=== PATIENT | male | born 1960 | race Caucasian/White ===

== ENCOUNTER 2016-11-23 20:01 | Emergency (ER) | payer OTHER ==
[~2016-11-23] VITALS: Ht 172.7 cm; Wt 86.3 kg
[~2016-11-23 20:01] MED LIST: ASPI325T PO; ATOR10 PO; CARV3.125 PO; LISI2.5T55 PO
[2016-11-23 20:14] VITALS: BP 135/91; PULSE 94; RESP 17; TEMP 98.3; O2SAT 98
[2016-11-23] MEDS ORDERED: DOCU50CA5 (20:22)
[2016-11-23] MEDS ORDERED: TRAM50TA PO (20:22)
--- NOTE | 2016-11-23 20:45 | PD ---
HPI Chief Complaint: Complaint Time Seen by Provider: 20:31 Travel History International Travel<30 days: No Contact w/Intl Traveler<30days: No Traveled to known affect area: No History of Present Illness HPI 56yo M with PMH of CAD s/p CABG presents to the ED with c/o inability to urinate since 4:30pm today. Pt states he had robotic prostatectomy on 11/19/16 and follow up with his urologist today in the clinic. Pt had his reyes catheter removed at 1pm today and was able to urinate after that. However , pt has not been able to urinate since 4:30pm and has the urge to urinate. Denies any abdominal pain but feels pressure in his bladder. Denies any fever, n/v, chest pain, sob, focal weakness or numbness. PFSH Past Medical History Cancer: No Cardiovascular Problems: Yes (TRIPLE BYPASS) Coronary Artery Disease: Yes ([place]) Diminished Hearing: No Endocrine: No Gastrointestinal Disorders: No Genitourinary: No Immune Disorder: No Implanted Vascular Access Dvce: No Musculoskeletal: No Neurologic: No Reproductive: No Respiratory: No Past Surgical History Abdominal Surgery: No AICD: No Arteriovenous Shunt: No Cardiac Surgery: Yes (3 VESSEL CABG) Ear Surgery: No Endocrine Surgery: No Eye Surgery: No Genitourinary Surgery: No Insulin Pump: No Joint Replacement: No Oral Surgery: No Pacemaker: No Other Surgery: No Social History Alcohol Use: No Tobacco Use: No Substance Use: No Allergies-Medications (Allergen,Severity, Reaction): Coded Allergies: No Known Allergies (Unverified , 11/23/16) Reported Meds & Prescriptions Reported Meds & Active Scripts Active Reported Metoclopramide (Metoclopramide HCl) 10 Mg Tab 10 Mg PO TIDAC Stool Softener (Docusate Sodium) 50 Mg Capsule Unknown Dose Tramadol (Tramadol HCl) 50 Mg Tab Unknown Dose PO Q4H PRN Review of Systems Except as stated in HPI: all other systems reviewed are Neg Physical Exam Narrative GENERAL: 56yo M not in distress. SKIN: Focused skin assessment warm/dry. HEAD: Atraumatic. Normocephalic. EYES: Pupils equal and round. No scleral icterus. No injection or drainage. CARDIOVASCULAR: Regular rate and rhythm. No murmur appreciated. RESPIRATORY: No accessory muscle use. Clear to auscultation. Breath sounds equal bilaterally. GASTROINTESTINAL: Abdomen softly distended. Surgical scars clean. Nontender to palpation. No rebound tenderness or guarding. BACK: No CVA tenderness bilaterally. MUSCULOSKELETAL: No obvious deformities. No clubbing. No cyanosis. No edema. NEUROLOGICAL: Awake and alert. No obvious cranial nerve deficits. Motor grossly within normal limits. Normal speech. PSYCHIATRIC: Appropriate mood and affect; insight and judgment normal. Data Data Last Documented VS Vital Signs Date Time Temp Pulse Resp B/P Pulse Ox O2 Delivery O2 Flow Rate FiO2 11/23/16 21:08 20 11/23/16 20:14 98.3 94 135/91 98 Orders Urinalysis - C+S If Indicated (11/23/16 20:33) Urinary Catheter Insert/Apply (11/23/16 20:33) Basic Metabolic Panel (Bmp) (11/23/16 20:33) Labs Laboratory Tests Test 11/23/16 11/23/16 20:55 21:00 Urine Collection Type CATH Urine Color YELLOW Urine Turbidity CLEAR Urine pH 7.0 Urine Specific [place] 1.017 Urine Protein NEG mg/dL Urine Glucose (UA) NEG mg/dL Urine Ketones NEG mg/dL Urine Occult Blood MOD Urine Nitrite NEG Urine Bilirubin NEG Urine Leukocyte Esterase NEG Urine RBC 4-9 /hpf Urine Squamous Epithelial 0-5 /hpf Cells Urine Amorphous Sediment SMALL Microscopic Urinalysis Comment CATH-CULT NOT IND Sodium Level 137 MEQ/L Potassium Level 3.9 MEQ/L Chloride Level 102 MEQ/L Carbon Dioxide Level 27.6 MEQ/L Anion Gap 7 MEQ/L Blood Urea Nitrogen 9 MG/DL Creatinine 0.82 MG/DL Estimat Glomerular Filtration 97 ML/MIN Rate Random Glucose 103 MG/DL Calcium Level 8.4 MG/DL [facility] Medical Decision Making Medical Screen Exam Complete: Yes Emergency Medical Condition: Yes Differential Diagnosis Urinary retention secondary to medication vs. recent procedure vs. UTI vs. DRE Narrative Course 56yo M with urinary retention since 4:30pm today. Reyes catheter inserted and 1200cc of urine came out. Pt feels much better afterwards. UA showed no leukocyte or nitrite. Moderate blood. BMP showed normal creatinine of 0.82. VS stable. Pt already called his urologist while in the ED and was told to call the office tomorrow to make a follow up appointment. Pt is to go home with reyes catheter and leg bag. Return precautions given. Diagnosis Primary Impression: Urinary retention Patient Instructions: General Instructions Departure Forms: Tests/Procedures Additional Instructions: Please call your urologist's office tomorrow and follow up with your urologist as outpatient. Return to the ED if symptoms worsen. Med/Other Pt SpecificInfo: No Change to Meds Disposition: 01 DISCHARGE HOME Condition: Stable Lita Carroll DO Nov 23, 2016 20:45
[2016-11-23 21:12] LABS: GLUCOSE,URINE NEG (NEG); KETONE, URINE NEG (NEG); NITRITE,URINE NEG (NEG)
[2016-11-23 21:19] LABS: BLOOD, URINE MOD (NEG)
[2016-11-23 21:21] LABS: METHOD OF COLLECTION CATH; URINE COLOR YELLOW (YELLW/STRAW)
[2016-11-23 21:23] LABS: COMMENT (UR) CATH-CULT NOT IND; CULTURE IF INDICATED CATH CULTURE NOT IND; SQUAMOUS EPITHELIAL CELL URINE 0-5 /hpf (0-5)
[2016-11-23 21:23] LABS: POTASSIUM 3.9 MEQ/L (3.5-5.1)
[2016-11-23] MEDS ORDERED: METO10TA PO (21:24)
[2016-11-23 21:26] LABS: BICARBONATE 27.6 MEQ/L (21.0-32.0)
[2016-11-23 22:16] VITALS: BP 131/74
== END 2016-11-23 22:19 | disposition home or self-care (01) ==
LOC: PHED 20:01
DX: R33.9 Retention of urine, unspecified (principal); I25.10 Atherosclerotic heart disease of native coronary artery without angina pectoris; Z95.1 Presence of aortocoronary bypass graft
CPT/HCPCS: 51702; 80048; 81001